=== PATIENT | male | born 1995 | race Caucasian/White ===

== ENCOUNTER → 2024-06-20 | Outpatient (CLI) | payer OTHER, SELFPAY ==
[2024-06-20 17:17] LABS: Syphilis Antibodies Nonreactive (Nonreactive)
[2024-06-20 20:00] LABS: HIV Nonreactive (Nonreactive)
[2024-06-21 05:07] LABS: HEPATITIS B SURFACE AG Negative (Negative); Hep C Antibodies Non Reactive (Non Reactive); Hepatitis A IgM Antibody Negative (Negative); Hepatitis B Core AB IgM Negative (Negative)
== END | disposition home or self-care (01) ==
LOC: VSLAB 12:01
DX: Z72.51 High risk heterosexual behavior (principal)
CPT/HCPCS: 36415; 80074; 86703; 86780; 87491; 87591; 87661